=== PATIENT | male | born 1960 | race Caucasian/White ===

== ENCOUNTER → 2019-12-04 08:58 | Outpatient (BNVA) | payer OTHER, SELFPAY | PROVIDERS: Family Provider Family Medicine; PCP Nurse Practitioner; Visit Provider Surgery | DX: Z11.59 Encounter for screening for other viral diseases (principal); R19.5 Other fecal abnormalities | CPT/HCPCS: 87635 ==

== ENCOUNTER 2019-12-09 06:02 | Day surgery (SDC) | payer OTHER, SELFPAY ==
[2019-12-07 10:26] VITALS: BMI 25.7
[2019-12-09 06:14] VITALS: BP 178/120; PULSE 107; RESP 20; TEMP 36.9; O2SAT 97
[2019-12-09] MEDS: sodium chloride 0.9% 1,000 ML 30 ML IV (06:31)
--- NOTE | 2019-12-09 06:34 | W.PM.OPSUD ---
Surgery/Procedure H&P Update DATE OF PROCEDURE: December 09, 2019 DATE H&P PERFORMED: 11/19/19 H&P UPDATE INFORMATION: I have reviewed H&P completed within last 30 days, I have examined patient prior to procedure and No changes to prior documentation PREOP DIAGNOSIS: Screening colonoscopy PRIMARY INDICATION FOR PROCEDURE: The same PLANNED PROCEDURE: Operation Date: 12/09/19 07:00 Proposed Procedures p Colonoscopy(Not Applicable) - Linden Chugn MD
--- NOTE | 2019-12-09 06:34 | ANES.PREANE2 ---
Pre-Anesthetic Assessment Pre-Anesthetic Assessment: Height/Weight: Height 1.65 m Weight 70.307 kg Temp Pulse Resp BP Pulse Ox 98.4 F 107 H 20 H 178/120 97 12/09/19 06:14 12/09/19 06:14 12/09/19 06:14 12/09/19 06:14 12/09/19 06:14 Preop Diagnosis: Screening colonoscopy Proposed Procedure: Operation Date: 12/09/19 07:00 Proposed Procedures p Colonoscopy(Not Applicable) - Linden Chung MD Familial anesthetic complications: None Was Beta Marily taken within 24 hours: N/A Last intake: Intake Last Liquid Date 12/08/19 Last Liquid Time 17:00 Last Solid Date 12/08/19 Last Solid Time 07:30 Social: Social History: No alcohol and No tobacco Exam: Pre-Anes Outpt Exam: alert, oriented x 3, clear to auscultation bilaterally and regular rate & rhythm Airway: Cervical ROM: WNL MP: 4 Dentition: Full Pulmonary: Comments: seasonal allergies CV/HEM: CV/HEM: HTN Anesthetic Plan: ASA status: 2 Anesthesia: MAC Risk of > 500 ml blood loss (7ml/kg in children): No Meds/Allergies Current Medications: Current Medications Generic Name Dose Route Start Last Admin Trade Name Freq PRN Reason Stop Dose Admin Sodium Chloride 1,000 mls @ 30 ml s/hr 12/09/19 06:15 12/09/19 06:31 Sodium Chloride 0.9% IV 12/10/19 06:14 30 mls/hr .Q24H ANGELITA Administration PFSH Anesthesia PFSH: Medical History (Updated 11/20/19 @ 08:21 by Linden Chung MD) Positive FIT (fecal immunochemical test) Family History Denies family history of Anesthesia complication Bleeding disorder Social History Smoking and tobacco status: never smoked Second hand smoke exposure: No Alcohol intake: never Adopted: No Caregiver/support person: Yes Lives independently: Yes Data Anesthesia Cardiac Studies: No Data to Display
[2019-12-09 07:55] VITALS: BP 127/89; PULSE 82; RESP 16; TEMP 36.1; O2SAT 97
[2019-12-09 08:19] VITALS: BP 129/88; PULSE 76; RESP 18; O2SAT 96
--- NOTE | 2019-12-09 08:25 | ANE.PACU2 ---
Inpatient post-anesthesia follow up: Airway intact: Yes Vital signs: Temperature 97 F Pulse Rate 76 Respiratory Rate 18 Blood Pressure 129/88 Pulse Oximetry 96 Oxygen Delivery Me thod Room Air Oxygen Flow Rate Fraction of Inspir ed Oxygen Hydration adequate: Yes Nausea and vomiting: No Pain level: 1 Mental status: Baseline
== END 2019-12-09 08:28 | disposition home or self-care (01) ==
PROVIDERS: PCP Nurse Practitioner; Visit Provider Surgery
PROC: 0DJD8ZZ Inspection of Lower Intestinal Tract, Via Natural or Artificial Opening Endoscopic (ICD-10-PCS; CPT 45378; principal; 2019-12-09 07:00)
DX: Z12.11 Encounter for screening for malignant neoplasm of colon (principal); K57.30 Diverticulosis of large intestine without perforation or abscess without bleeding; D12.8 Benign neoplasm of rectum; I10 Essential (primary) hypertension
CPT/HCPCS: 12345; 45385; 88305; J1100; J2250; J2704; J7030

== ENCOUNTER → 2020-01-08 07:20 | Outpatient (BNVA) | payer OTHER, SELFPAY | PROVIDERS: PCP Nurse Practitioner; Visit Provider Surgery | DX: Z11.59 Encounter for screening for other viral diseases (principal); K63.5 Polyp of colon | CPT/HCPCS: 87635 ==

== ENCOUNTER 2020-01-13 06:53 | Day surgery (SDC) | payer OTHER, SELFPAY ==
[2020-01-11 17:28] VITALS: BMI 25.0
[2020-01-13] VITALS (9 sets, daily range): BP systolic 133–162; BP diastolic 91–117; PULSE 77–129; RESP 14–18; TEMP 36.3–36.8; O2SAT 95–100
[2020-01-13] MEDS: sodium chloride 0.9% 1,000 ML 30 ML IV (07:27)
--- NOTE | 2020-01-13 07:40 | ANES.PREANE2 ---
Pre-Anesthetic Assessment Pre-Anesthetic Assessment: Height/Weight: Height 1.65 m Weight 68.039 kg Temp Pulse Resp BP Pulse Ox 98.2 F 129 H 18 152/117 96 01/13/20 07:21 01/13/20 07:21 01/13/20 07:21 01/13/20 07:21 01/13/20 07:21 Preop Diagnosis: Colon polyp Proposed Procedure: Operation Date: 01/13/20 08:00 Proposed Procedures p flex Sigmoidoscopy 35881 K63.5(Not Applicable) - Linden Chung MD Familial anesthetic complications: None Was Beta Marily taken within 24 hours: N/A Last intake: Intake Last Liquid Date 01/12/20 Last Liquid Time 20:00 Last Solid Date 01/12/20 Last Solid Time 08:00 Social: Social History: No alcohol and No tobacco Exam: Pre-Anes Outpt Exam: alert, oriented x 3, clear to auscultation bilaterally and regular rate & rhythm Airway: Cervical ROM: WNL MP: 3 Dentition: Full Pulmonary: Comments: ? VICKIE CV/HEM: CV/HEM: HTN Anesthetic Plan: ASA status: 2 Anesthesia: General Other: Patient developed rocking abdominal motion d/t upper airway obstruction/VICKIE during last colonoscopy and required heavy amounts of propofol. His inability to be still led to procedure being aborted while proceduralist was attempting to remove polyp. We can proceed with LMA today, and ETT if required, to help with polyp removal Risk of > 500 ml blood loss (7ml/kg in children): No Meds/Allergies Current Medications: Current Medications Generic Name Dose Route Start Last Admin Trade Name Freq PRN Reason Stop Dose Admin Sodium Chloride 1,000 mls @ 30 ml s/hr 01/13/20 07:15 01/13/20 07:27 Sodium Chloride 0.9% IV 01/14/20 07:14 30 mls/hr .Q24H ANGELITA Administration PFSH Anesthesia PFSH: Medical History Positive FIT (fecal immunochemical test) Family History Denies family history of Anesthesia complication Bleeding disorder Social History Smoking and tobacco status: never smoked Second hand smoke exposure: No Alcohol intake: never Adopted: No Caregiver/support person: Yes Lives independently: Yes Data Anesthesia Cardiac Studies: No Data to Display
--- NOTE | 2020-01-13 08:15 | W.PM.OPSUD ---
Surgery/Procedure H&P Update DATE OF PROCEDURE: January 13, 2020 DATE H&P PERFORMED: 12/16/19 H&P UPDATE INFORMATION: I have reviewed H&P completed within last 30 days, I have examined patient prior to procedure and No changes to prior documentation PREOP DIAGNOSIS: Colon polyp PRIMARY INDICATION FOR PROCEDURE: The same PLANNED PROCEDURE: Operation Date: 01/13/20 08:00 Proposed Procedures p flex Sigmoidoscopy 13125 K63.5(Not Applicable) - Linden Chung MD
--- NOTE | 2020-01-13 09:47 | SUR.PHASEI ---
0940 PT HAS MOVEMENT IN ALL EXTREMITIES, AXO X 3
--- NOTE | 2020-01-13 09:48 | SUR.PHASEI ---
0940 PT HAS MOBILITY IN ALL EXTREMITIES, AXO X4
[2020-01-13] MEDS: ondansetron 2 mg/ML SDV 2 mL 4 MG IVP ×2 (09:57→10:37)
--- NOTE | 2020-01-13 10:41 | ANE.PACU2 ---
Inpatient post-anesthesia follow up: Airway intact: Yes Vital signs: Temperature 97.4 F Pulse Rate 86 Respiratory Rate 18 Blood Pressure 162/104 Pulse Oximetry 98 Oxygen Delivery Me thod Room Air Oxygen Flow Rate 8 Fraction of Inspir ed Oxygen Hydration adequate: Yes Nausea and vomiting: Yes Mental status: Baseline
--- NOTE | 2020-01-13 10:53 | PC.NURSE ---
PT C/O NAUSEA CONSISTENTLY. GIVEN ZOFRAN 8MG TOTAL. STATES SOME RELIEF. PT VITAL SIGNS MONITORED CLOSELY, ESPECIALLY D/T SEVERELY HIGH BLOOD PRESSURE PRE-OP, INTRAOP, AND POST OP.
[2020-01-13] MEDS: promethazine 25 mg Tablet PO (11:15)
== END 2020-01-13 11:36 | disposition home or self-care (01) ==
PROVIDERS: PCP Nurse Practitioner; Visit Provider Surgery
PROC: 0DJD8ZZ Inspection of Lower Intestinal Tract, Via Natural or Artificial Opening Endoscopic (ICD-10-PCS; CPT 45330; principal; 2020-01-13 08:00)
DX: K63.5 Polyp of colon (principal); K57.30 Diverticulosis of large intestine without perforation or abscess without bleeding; I10 Essential (primary) hypertension
CPT/HCPCS: 12345; 45338; J0330; J1100; J2405; J2704; J2710; J3010; J3490; J7030; Q0169